=== PATIENT | female | born 1960 | race Two or more races ===

== ENCOUNTER 2024-01-18 21:26 | Inpatient (IN) | payer MEDICARE, OTHER ==
[~2024-01-18] VITALS: Ht 154.9 cm; Wt 49.9 kg
[2024-01-18] MEDS ORDERED: GLIP5TAB13 PO (21:58)
[2024-01-18] MEDS ORDERED: ATOR40TA PO (21:58)
[2024-01-18] MEDS ORDERED: METF-442 PO (21:59)
[2024-01-18] MEDS ORDERED: LORAZEPAM 0.5 MG TABLET PO PRN (22:30)
[2024-01-18] MEDS ORDERED: MAG HYDROX/AL HYDROX/SIMETH 30 ML UDC PO PRN (22:30)
[2024-01-18] MEDS ORDERED: MAGNESIUM HYDROXIDE 30 ML UDC PO PRN (22:30)
[2024-01-18] MEDS ORDERED: ACETAMINOPHEN 325 MG TABLET PO PRN (22:30)
[2024-01-18] MEDS: BLOOD SUGAR DIAGNOSTIC 1 EACH STRIP IN ONE (22:54)
[2024-01-18] MEDS ORDERED: DEXTROSE 50%-WATER 50 ML DISP.SYRIN IV PRN (23:00)
[2024-01-19] MEDS: BLOOD SUGAR DIAGNOSTIC 1 EACH STRIP IN SCH (06:53)
[2024-01-19] MEDS: INSULIN REGULAR, HUMAN 100 UNIT/ML 3 ML VIAL SQ PRN (06:59)
[2024-01-19 07:02] LABS: BASOPHILS # (AUTO) 0.1 K/uL (0.0-0.2); BASOPHILS % (AUTO) 1.3 % (0.0-2.0); EOSINOPHILS # (AUTO) 0.2 K/uL (0.0-0.7); EOSINOPHILS % (AUTO) 4.4 % (0.0-6.0); HEMATOCRIT 36 % (33-45); HEMOGLOBIN 12.2 g/dL (11.5-14.8); LYMPHOCYTES # (AUTO) 1.9 K/uL (0.8-4.8); LYMPHOCYTES % (AUTO) 36.8 % (20.0-44.0); MEAN CORPUSCULAR HEMOGLOBIN 31 PG (26.0-33.0); MEAN CORPUSCULAR HGB CONC 34 g/dl (31.0-36.0); MEAN CORPUSCULAR VOLUME 92 fL (82-100); MONOCYTES # (AUTO) 0.4 K/uL (0.1-1.30); NEUTROPHILS # (AUTO) 2.7 K/uL (1.8-8.9); NEUTROPHILS % (AUTO) 50.5 % (43.0-81.0); PLATELET COUNT (AUTO) 267 K/uL (150-450); RED BLOOD CELL COUNT(AUTO) 3.91 MIL/uL (4.0-5.2); RED CELL DISTRIBUTION WIDTH 12.7 % (11.5-15.0); WHITE BLOOD COUNT (AUTO) 5.3 K/uL (4.3-11.0)
[2024-01-19 07:24] LABS: CALCIUM, SERUM 7.8 mg/dL (8.5-10.1); CREATININE 0.5 mg/dL (0.6-1.3); POTASSIUM 3.4 mmol/L (3.5-5.1)
[2024-01-19 08:00] VITALS: BP 150/77; TEMP 97.9; O2SAT 100
[2024-01-19] MEDS: glipiZIDE 5 MG TABLET PO SCH (08:21)
[2024-01-19] MEDS: METFORMIN 500 MG TABLET PO SCH (08:21)
[2024-01-19] MEDS: ESCITALOPRAM OXALATE (10 MG) 10 MG TABLET PO SCH (10:49)
[2024-01-19] MEDS: POTASSIUM CHLORIDE 20 MEQ TAB.PRT.SR PO ONE (10:49)
[2024-01-19 16:00] VITALS: BP 118/71; TEMP 98.1; O2SAT 100
[2024-01-19 20:00] VITALS: BP 143/78; TEMP 98.3; O2SAT 100
[2024-01-19] MEDS: ATORVASTATIN 40 MG TABLET PO SCH (21:52)
[2024-01-19] MEDS: LORAZEPAM 1 MG TABLET PO PRN (22:20)
[2024-01-20 10:03] VITALS: BP 126/74; TEMP 98.6; O2SAT 99
[2024-01-20 18:01] VITALS: BP 115/70; TEMP 97.9
[2024-01-20 20:00] VITALS: BP 139/74; TEMP 98.2; O2SAT 98
[2024-01-20] MEDS: INSULIN GLARGINE, 100 UNIT/ML CARTRIDGE SQ SCH (22:00)
[2024-01-21 08:00] VITALS: BP 129/72; TEMP 97.6; O2SAT 96
[2024-01-21 16:00] VITALS: BP 108/65; TEMP 97.5; O2SAT 97
[2024-01-21 20:53] VITALS: BP 136/72; TEMP 97.5; O2SAT 99
[2024-01-22 08:00] VITALS: BP 150/90; TEMP 98.6; O2SAT 100
[2024-01-22 16:00] VITALS: BP 119/78; TEMP 98.1; O2SAT 98
[2024-01-22 20:51] VITALS: BP 153/91; TEMP 98; O2SAT 100
[2024-01-22] MEDS: ZOLPIDEM TARTRATE 5 MG TABLET PO PRN (22:10)
[2024-01-23 08:00] VITALS: BP 103/64; TEMP 97.6; O2SAT 100
[2024-01-23 16:11] VITALS: BP 113/58; TEMP 98; O2SAT 100
[2024-01-23 21:06] VITALS: BP 131/70; TEMP 98.4; O2SAT 99
[2024-01-24 08:00] VITALS: BP 129/89; TEMP 97.7; O2SAT 98
[2024-01-24 16:00] VITALS: BP 106/61; TEMP 97.9; O2SAT 98
[2024-01-24 20:00] VITALS: BP 133/67; TEMP 98.8; O2SAT 99
[2024-01-25] MEDS ORDERED: LOPERAMIDE HCL (2 MG CAP) 2 MG CAPSULE PO PRN (07:00)
[2024-01-25 08:00] VITALS: BP 146/70; TEMP 97.9; O2SAT 99
[2024-01-25] MEDS: CEPHALEXIN MONOHYDRATE 500 MG CAPSULE PO SCH (11:43)
[2024-01-25 12:28] LABS: APPEARANCE,URINE CLOUDY (CLEAR); BILIRUBIN,URINE NEGATIVE (NEGATIVE); BLOOD, URINE 1+ Ery/uL (NEGATIVE); COLOR,URINE YELLOW (YELLOW); KETONES,URINE NEGATIVE (NEGATIVE); LEUKOCYTE ESTERASE ,URINE 3+ (NEGATIVE); NITRITE, URINE NEGATIVE (NEGATIVE); PROTEIN,URINE NEGATIVE (NEGATIVE); UGLUCOSE 3+ mg/dL (NEGATIVE); UROBILINOGEN,URINE 0.2 EU/dL (0.2)
[2024-01-25 12:31] LABS: ADD URINE CULTURE YES; BACTERIA,URINE Few /HPF (None Seen); SQUAMOUS EPITHELIAL CELL,UR Rare /HPF (None Seen)
[2024-01-25 16:00] VITALS: BP 124/68; TEMP 98.7; O2SAT 100
[2024-01-25 20:00] VITALS: BP 132/81; TEMP 98.4; O2SAT 100
[2024-01-25] MEDS: INSULIN GLARGINE, 100 UNIT/ML CARTRIDGE SQ SCH (22:00)
[2024-01-26 08:00] VITALS: BP 141/77; TEMP 98.1; O2SAT 100
== END 2024-01-26 12:00 | DRG 885 ==
LOC: GPS 21:26
PROVIDERS: ADMIT Psychiatry & Neurology Psychiatry
DX: F32.2 Major depressive disorder, single episode, severe without psychotic features (principal); E11.65 Type 2 diabetes mellitus with hyperglycemia; N39.0 Urinary tract infection, site not specified; F29 Unspecified psychosis not due to a substance or known physiological condition; F41.9 Anxiety disorder, unspecified; E78.5 Hyperlipidemia, unspecified; Z20.822 Contact with and (suspected) exposure to COVID-19; Z79.84 Long term (current) use of oral hypoglycemic drugs; B96.89 Other specified bacterial agents as the cause of diseases classified elsewhere
CPT/HCPCS: 36415; 80048-TC; 80061-TC; 81001; 82962-TC; 85025-TC; 87081-TC; 87086-TC; 97112-TC; 97116-TC; 97530-TC; J1815

== ENCOUNTER 2024-06-21 15:43 | Emergency (ER) | payer MEDICARE, OTHER ==
[~2024-06-21] VITALS: Ht 152.4 cm; Wt 54.4 kg
[~2024-06-21 15:43] MED LIST: ATOR40TA PO; GLIP5TAB13 PO; METF-442 PO
[2024-06-21 18:15] LABS: APPEARANCE,URINE Clear (CLEAR); BILIRUBIN,URINE Negative (NEGATIVE); BLOOD, URINE Small Ery/uL (NEGATIVE); COLOR,URINE YELLOW (YELLOW); KETONES,URINE Negative (NEGATIVE); LEUKOCYTE ESTERASE ,URINE Negative (NEGATIVE); NITRITE, URINE Negative (NEGATIVE); PH,URINE 6.5 (5.0-8.0); PROTEIN,URINE Negative (NEGATIVE); UGLUCOSE >=1000 mg/dL (NEGATIVE); UROBILINOGEN,URINE 0.2 EU/dL (0.2)
[2024-06-21 18:26] LABS: ADD URINE CULTURE YES; BACTERIA,URINE Few /HPF (None Seen); SQUAMOUS EPITHELIAL CELL,UR Few /HPF (None Seen); YEAST,URINE Few /HPF (None Seen)
[2024-06-21 20:24] VITALS: BP 147/84; TEMP 98; O2SAT 98
== END 2024-06-21 20:25 ==
LOC: ER 15:45
DX: T83.021A Displacement of indwelling urethral catheter, initial encounter (principal); I10 Essential (primary) hypertension; E11.9 Type 2 diabetes mellitus without complications; Z79.84 Long term (current) use of oral hypoglycemic drugs; Y92.89 Other specified places as the place of occurrence of the external cause
CPT/HCPCS: 81001

== ENCOUNTER 2024-07-05 21:40 | Emergency (ER) | payer MEDICARE, OTHER ==
[~2024-07-05] VITALS: Ht 170.2 cm; Wt 49.9 kg
[2024-07-05 21:50] VITALS: BP 131/86; TEMP 98.5; O2SAT 98
== END 2024-07-06 01:33 | disposition home or self-care (01) ==
LOC: ER 21:51
DX: T83.098A Other mechanical complication of other urinary catheter, initial encounter (principal); E11.9 Type 2 diabetes mellitus without complications; I10 Essential (primary) hypertension; Z79.84 Long term (current) use of oral hypoglycemic drugs; Z86.79 Personal history of other diseases of the circulatory system; Y84.8 Other medical procedures as the cause of abnormal reaction of the patient, or of later complication, without mention of misadventure at the time of the procedure; Y92.89 Other specified places as the place of occurrence of the external cause

== ENCOUNTER 2024-07-22 14:46 | Emergency (ER) | payer MEDICARE, OTHER ==
[~2024-07-22] VITALS: Ht 167.6 cm; Wt 51.7 kg
[2024-07-22] MEDS: SUMATRIPTAN SUCCINATE 6 MG/0.5 ML VIAL SQ ONE (15:30)
[2024-07-22] MEDS: KETOROLAC TROMETHAMINE INJ 30 MG/ML VIAL IM ONE (15:30)
[2024-07-22] MEDS ORDERED: SUMATRIPTAN SUCCINATE 6 MG/0.5 ML VIAL SQ ONE (15:46)
[2024-07-22] MEDS ORDERED: KETOROLAC TROMETHAMINE INJ 30 MG/ML VIAL ONE (15:47)
[2024-07-22] MEDS ORDERED: KETO10TA2 PO (17:10)
[2024-07-22] MEDS ORDERED: SUMA100T PO (17:10)
[2024-07-22] MEDS ORDERED: METO-295 PO (17:10)
[2024-07-22] MEDS ORDERED: ONDANSETRON 4 MG TAB.RAPDIS ONE (17:27)
[2024-07-22] MEDS: ONDANSETRON 4 MG TAB.RAPDIS SL ONE (17:28)
[2024-07-22 19:55] VITALS: BP 149/81; TEMP 98.2; O2SAT 97
== END 2024-07-22 19:56 ==
LOC: ER 14:50
DX: F07.81 Postconcussional syndrome (principal); M19.011 Primary osteoarthritis, right shoulder; G44.309 Post-traumatic headache, unspecified, not intractable; I10 Essential (primary) hypertension; E11.9 Type 2 diabetes mellitus without complications; Z79.84 Long term (current) use of oral hypoglycemic drugs
CPT/HCPCS: 99285; 70450; 96372; 73030; J3030; J1885; Q0162

== ENCOUNTER 2024-07-25 02:14 | Emergency (ER) | payer MEDICARE, OTHER ==
[~2024-07-25] VITALS: Ht 157.5 cm; Wt 52.6 kg
[~2024-07-25 02:14] MED LIST changes: +KETO10TA2 PO; +METO-295 PO; +SUMA100T PO
[2024-07-25 02:29] VITALS: BP 147/85; TEMP 100.6
[2024-07-25 03:35] VITALS: O2SAT 100
== END 2024-07-25 03:40 | disposition left against medical advice (07) ==
LOC: ER 02:19
DX: R51.9 Headache, unspecified (principal); R11.2 Nausea with vomiting, unspecified; I10 Essential (primary) hypertension; E11.9 Type 2 diabetes mellitus without complications; Z79.84 Long term (current) use of oral hypoglycemic drugs; Z86.79 Personal history of other diseases of the circulatory system; Z86.59 Personal history of other mental and behavioral disorders

== ENCOUNTER 2024-08-01 03:27 | Emergency (ER) | payer MEDICARE, OTHER ==
[~2024-08-01] VITALS: Ht 152.4 cm; Wt 54.4 kg
[2024-08-01 03:52] VITALS: BP 119/55; TEMP 98.1; O2SAT 97
[2024-08-01 04:15] LABS: APPEARANCE,URINE CLEAR (CLEAR); BILIRUBIN,URINE NEGATIVE (NEGATIVE); BLOOD, URINE 3+ Ery/uL (NEGATIVE); COLOR,URINE YELLOW (YELLOW); KETONES,URINE NEGATIVE (NEGATIVE); LEUKOCYTE ESTERASE ,URINE NEGATIVE (NEGATIVE); NITRITE, URINE NEGATIVE (NEGATIVE); PROTEIN,URINE TRACE mg/dl (NEGATIVE); UGLUCOSE 3+ mg/dL (NEGATIVE)
[2024-08-01 05:57] LABS: RBC,URINE 21-50 /HPF (0-2)
[2024-08-01 05:58] LABS: ADD URINE CULTURE YES; BACTERIA,URINE 3+ /HPF (None Seen)
== END 2024-08-01 05:32 ==
LOC: ER 03:34
DX: T83.021A Displacement of indwelling urethral catheter, initial encounter (principal); E11.9 Type 2 diabetes mellitus without complications; I10 Essential (primary) hypertension; Z79.84 Long term (current) use of oral hypoglycemic drugs; Z86.79 Personal history of other diseases of the circulatory system; Z86.59 Personal history of other mental and behavioral disorders; Y84.8 Other medical procedures as the cause of abnormal reaction of the patient, or of later complication, without mention of misadventure at the time of the procedure; Y92.89 Other specified places as the place of occurrence of the external cause
CPT/HCPCS: 81001

== ENCOUNTER 2024-09-04 13:29 | Emergency (ER) | payer MEDICARE, OTHER ==
[~2024-09-04] VITALS: Ht 152.4 cm; Wt 54.4 kg
[~2024-09-04 13:29] MED LIST changes: +SULF1TAB48 PO
[2024-09-04 14:19] LABS: BASOPHILS # (AUTO) 0.1 K/uL (0.0-0.2); BASOPHILS % (AUTO) 1.3 % (0.0-2.0); EOSINOPHILS # (AUTO) 0.1 K/uL (0.0-0.7); EOSINOPHILS % (AUTO) 1.9 % (0.0-6.0); HEMATOCRIT 32 % (33-45); HEMOGLOBIN 10.9 g/dL (11.5-14.8); LYMPHOCYTES # (AUTO) 1.5 K/uL (0.8-4.8); LYMPHOCYTES % (AUTO) 24.2 % (20.0-44.0); MEAN CORPUSCULAR HEMOGLOBIN 30 PG (26.0-33.0); MEAN CORPUSCULAR HGB CONC 34 g/dl (31.0-36.0); MEAN CORPUSCULAR VOLUME 89 fL (82-100); MONOCYTES # (AUTO) 0.4 K/uL (0.1-1.30); MONOCYTES % (AUTO) 6.2 % (2.0-12.0); NEUTROPHILS # (AUTO) 4.1 K/uL (1.8-8.9); NEUTROPHILS % (AUTO) 66.4 % (43.0-81.0); PLATELET COUNT (AUTO) 263 K/uL (150-450); RED BLOOD CELL COUNT(AUTO) 3.63 MIL/uL (4.0-5.2); RED CELL DISTRIBUTION WIDTH 14.5 % (11.5-15.0); WHITE BLOOD COUNT (AUTO) 6.1 K/uL (4.3-11.0)
[2024-09-04 14:46] LABS: CALCIUM, SERUM 8.7 mg/dL (8.5-10.1); CREATININE 0.6 mg/dL (0.6-1.3)
[2024-09-04 14:49] LABS: ALBUMIN 3.2 g/dL (3.4-5.0); BILIRUBIN,DIRECT 0.2 mg/dL (0.0-0.2); BILIRUBIN,TOTAL 0.5 mg/dL (0.2-1.0); TOTAL PROTEIN, SERUM 7.3 g/dL (6.4-8.2)
[2024-09-04 15:00] LABS: APPEARANCE,URINE SLIGHTLY CLOUDY (CLEAR); BILIRUBIN,URINE NEGATIVE (NEGATIVE); BLOOD, URINE 1+ Ery/uL (NEGATIVE); COLOR,URINE YELLOW (YELLOW); KETONES,URINE NEGATIVE (NEGATIVE); LEUKOCYTE ESTERASE ,URINE 1+ (NEGATIVE); NITRITE, URINE POSITIVE (NEGATIVE); PROTEIN,URINE 1+ mg/dl (NEGATIVE); UGLUCOSE 3+ mg/dL (NEGATIVE); UROBILINOGEN,URINE 0.2 EU/dL (0.2)
[2024-09-04 15:39] LABS: ADD URINE CULTURE YES; BACTERIA,URINE 1+ /HPF (None Seen); SQUAMOUS EPITHELIAL CELL,UR 0-2 /HPF (None Seen)
[2024-09-04 15:40] LABS: YEAST,URINE Few /HPF (None Seen)
[2024-09-04] MEDS ORDERED: POTASSIUM CHLORIDE 20 MEQ TAB.PRT.SR PO ONE (16:05)
[2024-09-04] MEDS ORDERED: CEPHALEXIN MONOHYDRATE 500 MG CAPSULE PO ONE (16:05)
[2024-09-04] MEDS: POTASSIUM CHLORIDE 20 MEQ TAB.PRT.SR PO ONE (16:12)
[2024-09-04] MEDS: CEPHALEXIN MONOHYDRATE 500 MG CAPSULE PO ONE (16:13)
[2024-09-04] MEDS ORDERED: CEPH500T PO (17:01)
[2024-09-04] MEDS ORDERED: ESCI10TA PO (17:31)
[2024-09-04] MEDS ORDERED: LOPE2CAP40 PO (17:31)
[2024-09-04] MEDS ORDERED: POLY17PO4 PO (17:31)
[2024-09-04] MEDS ORDERED: INSU100I43 SQ (17:31)
[2024-09-04] MEDS ORDERED: MAGN400O6 PO (17:31)
[2024-09-04] MEDS ORDERED: INSU100I30 SQ (17:31)
[2024-09-04] MEDS ORDERED: METF-440 PO (17:31)
[2024-09-04] MEDS ORDERED: EMPA25TA PO (17:31)
[2024-09-04] MEDS ORDERED: SEMA0.25 SQ (17:31)
[2024-09-04] MEDS ORDERED: ACET325T53 PO (17:31)
[2024-09-04] MEDS ORDERED: MAG30ORA PO (17:31)
[2024-09-04] MEDS ORDERED: DIGE1TAB PO (17:31)
[2024-09-04 18:19] VITALS: BP 150/84; TEMP 98.2; O2SAT 96
== END 2024-09-04 18:19 ==
LOC: ER 13:33
DX: N39.0 Urinary tract infection, site not specified (principal); R42 Dizziness and giddiness; R53.1 Weakness; E87.6 Hypokalemia; E11.319 Type 2 diabetes mellitus with unspecified diabetic retinopathy without macular edema; I10 Essential (primary) hypertension; Z79.84 Long term (current) use of oral hypoglycemic drugs; Z86.79 Personal history of other diseases of the circulatory system; Z86.59 Personal history of other mental and behavioral disorders
CPT/HCPCS: 36415; 70450-TC; 80048-TC; 80076-TC; 81001; 83690-TC; 83735-TC; 84484-TC; 85025-TC